=== PATIENT | male | born 1995 | race Caucasian/White ===

== ENCOUNTER 2021-09-05 02:26 | Emergency (ER) | payer SELFPAY ==
[~2021-09-05 02:26] MED LIST: Bromphed DM PO; CLEOCIN HCL300 MG PO; FLONASE 0.05% N16 GM; IBUPROFEN600 MG PO; Viscous lidocaine2% TOP; ZYRTEC10 MG PO
[2021-09-05 02:55] LABS: HEMOGLOBIN 15.3 gm/dl (14.0-17.5); RED BLOOD COUNT 5.38 M/UL (4.20-5.50); WHITE BLOOD COUNT 8.9 K/UL (4.5-11.0)
[2021-09-05 03:29] LABS: BUN/CREATININE RATIO 24 (0-10)
[2021-09-05] MEDS ORDERED: HYDROCODON-ACE1 EAC4 PO (07:00)
== END 2021-09-05 07:52 | disposition home or self-care (01) ==
LOC: ER1 02:26
PROVIDERS: Student in an Organized Health Care Education/Training Program
DX: K80.70 Calculus of gallbladder and bile duct without cholecystitis without obstruction (principal); F17.290 Nicotine dependence, other tobacco product, uncomplicated
CPT/HCPCS: 80053; 81001; 83690; 85025; 96374; 99284; J1885; Q9967

== ENCOUNTER 2021-09-09 21:48 | Emergency (ER) | payer MEDICAID ==
[~2021-09-09 21:48] MED LIST changes: +HYDROCODON-ACE1 EAC4 PO
[2021-09-10 02:08] LABS: RED BLOOD COUNT 5.27 M/UL (4.20-5.50); WHITE BLOOD COUNT 11.3 K/UL (4.5-11.0)
[2021-09-10 02:29] LABS: BUN/CREATININE RATIO 18 (0-10)
[2021-09-10] MEDS ORDERED: BENTYL 20MG TAB20 MG PO (02:51)
[2021-09-10] MEDS ORDERED: AMOX TR-K CLV1 EAC4 PO (02:52)
[2021-09-10] MEDS ORDERED: ZOFRAN ODT 4 MG4 MG PO (02:52)
== END 2021-09-10 03:18 | disposition home or self-care (01) ==
LOC: ER1 21:48
PROVIDERS: Physician Assistant
DX: K80.00 Calculus of gallbladder with acute cholecystitis without obstruction (principal); F17.210 Nicotine dependence, cigarettes, uncomplicated; Z90.89 Acquired absence of other organs
CPT/HCPCS: 80053; 83690; 85025; 96361; 96372; 96374; 99284; J0500; J2405

== ENCOUNTER 2021-09-20 01:08 | Emergency (ER) | payer OTHER ==
[~2021-09-20 01:08] MED LIST changes: +AMOX TR-K CLV1 EAC4 PO; +BENTYL 20MG TAB20 MG PO; +ZOFRAN ODT 4 MG4 MG PO
[2021-09-20 02:24] LABS: HEMOGLOBIN 15.5 gm/dl (14.0-17.5); RED BLOOD COUNT 5.39 M/UL (4.20-5.50); WHITE BLOOD COUNT 7.8 K/UL (4.5-11.0)
[2021-09-20 02:31] LABS: BUN/CREATININE RATIO 19 (0-10)
== END 2021-09-20 05:13 | disposition home or self-care (01) ==
LOC: ER1 01:08
PROVIDERS: Physician Assistant
DX: K80.70 Calculus of gallbladder and bile duct without cholecystitis without obstruction (principal); F17.290 Nicotine dependence, other tobacco product, uncomplicated; Z87.19 Personal history of other diseases of the digestive system
CPT/HCPCS: 80053; 83690; 85025; 96374; 96375; 96376; 99284; J2270; J2405